=== PATIENT | female | born 1995 | race Caucasian/White ===

== ENCOUNTER → 2016-06-25 | Outpatient (CLI) | payer MEDICAID ==
--- NOTE | 2016-06-25 16:39 | RADIOLOGY REPORT PS360 ---
US PELVIS-TRANSVAGINAL ONLY HISTORY: Dysfunctional uterine bleeding DUB ORDERING PHYSICIAN: Jesse Turcios MD PATIENT AGE: 21 years COMPARISON: 09/21/2014 FINDINGS: The uterus is 6 x 3 x 4 cm and has an unremarkable appearance. Combined endometrial thickness is 5 mm. The left ovary 3 x 1.8 cm containing multiple follicles. The right ovary is 5 x 2.6 cm containing follicles and a dominant 2.9 x 1.3 cm cyst inferiorly. No cul-de-sac fluid apparent. There is bilateral ovarian blood flow noted. IMPRESSION: 1. 3 cm right ovarian cyst with small bilateral ovarian follicles
== END ==
LOC: RAD 11:00
DX: N92.0 Excessive and frequent menstruation with regular cycle (principal)

== ENCOUNTER → 2016-07-28 | Outpatient (CLI) | payer MEDICAID ==
[2016-07-29 06:37] LABS: Rapid Plasma Reagin, Quant Non Reactive (NonRea<1:1)
[2016-07-29 07:39] LABS: HBsAg Screen Negative (Negative); HIV Screen 4th Generation wRfx Non Reactive (Non Reactive); Hep A Ab, IgM Negative (Negative); Hep B Core Ab, IgM Negative (Negative); Hep C Virus Ab <0.1 (0.0-0.9)
== END ==
LOC: LAB 09:35
PROVIDERS: Obstetrics & Gynecology
DX: Z11.3 Encounter for screening for infections with a predominantly sexual mode of transmission (principal)
CPT/HCPCS: G0432